=== PATIENT | male | born 2000 | race Caucasian/White ===

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

== ENCOUNTER 2019-03-15 08:36 | Emergency (ER) | payer SELFPAY, OTHER ==
[2019-03-15] MEDS: IBUPROFEN 800 MG TAB PO (09:12)
[2019-03-15] MEDS: BACITRACIN 0.5%/ZINC 28.35 GM OINT TOP (09:41)
== END 2019-03-15 09:44 | disposition home or self-care (01) ==
LOC: FTE 08:36
DX: S61.011A Laceration without foreign body of right thumb without damage to nail, initial encounter (principal); S80.211A Abrasion, right knee, initial encounter; W18.30XA Fall on same level, unspecified, initial encounter; Y92.9 Unspecified place or not applicable
CPT/HCPCS: 99282